=== PATIENT | female | born 1985 | race Caucasian/White ===

== ENCOUNTER 2019-10-10 12:32 | Emergency (ER) | payer OTHER ==
--- NOTE | 2019-10-10 12:36 | PDOC ---
History of Present Illness - General Chief Complaint: Constipation Stated Complaint: CONSTIPATION Time Seen by Provider: 10/10/19 12:35 - History of Present Illness Initial Comments: 10/10/19 12:59 34yo female who is 4 weeks s/p c section delivery with constipation. States she has been having regular bowel movements, but felt rectal pain and pressure today and unable to pass her bowels. Has been fiber and colace since her surgery. States she tried to disimpact herself this am and tried an enema without improvement. Pt denies n/v. No longer on pain meds from her c section. Pt denies f/c. No abd pain. No dysuria. No vaginal complaints. No cp/sob. No f/ c. No other complaints. Pmhx: denies Pshx: c section All: nkda Past History - Past Medical History Allergies/Adverse Reactions: Allergies Allergy/AdvReac Type Severity Reaction Status Date / Time No Known Allergies Allergy Verified 10/10/19 12:33 Home Medications: Ambulatory Orders Docusate Sodium [Colace] 100 mg PO DAILY 10/10/19 Inulin/Chromium Picolinate [Fiber Gummies] 1 each PO DAILY 10/10/19 Vit 93/Iron Fum/Folic [ Formula Tablet] 1 each PO DAILY Review of Systems - Review of Systems Able to Perform ROS?: Yes Is the patient limited Slovenian proficient: No Constitutional: No: Chills, Fever HEENTM: No: Ear Pain, Nose Congestion, Throat Pain Respiratory: No: Cough, Shortness of Breath Cardiac (ROS): No: Chest Pain, Edema, Palpitations ABD/GI: Yes: Constipated, Other (rectal pain). No: Diarrhea, Nausea, Vomiting : No: Burning, Dysuria, Hematuria Musculoskeletal: No: Back Pain Integumentary: No: Rash Neurological: No: Headache, Numbness, Paresthesia All Other Systems: Reviewed and Negative *Physical Exam - Vital Signs 10/10/19 13:03 Selected Entries 10/10/19 12:33 Temperature 97.7 F Pulse Rate 89 Respiratory 20 Rate Blood Pressure 114/77 Blood Pressure 89 Mean O2 Sat by Pulse 100 Oximetry (%) Weight 81.647 kg - Physical Exam General Appearance: Yes: Nourished, Appropriately Dressed, Mild Distress HEENT: positive: EOMI, Normal Voice Neck: positive: Supple Respiratory/Chest: positive: Lungs Clear, Normal Breath Sounds. negative: Respiratory Distress Cardiovascular: positive: Regular Rhythm, Regular Rate, S1, S2. negative: Edema Gastrointestinal/Abdominal: positive: Soft, Other (c section scar is well healing). negative: Guarding, Rebound, Tenderness Rectal Exam: positive: normal rectal tone, hemorrhoids (internal hemorrhoid), other (hard stool in the vault which was removed digitally, small internal hemorrhoids, no fissures, no active bleeding, no thrombosed hemorrhoids) Musculoskeletal: positive: Normal Inspection. negative: CVA Tenderness Extremity: positive: Normal Capillary Refill, Normal Inspection, Normal Range of Motion. negative: Swelling, Calf Tenderness Integumentary: positive: Normal Color, Dry, Warm Neurologic: positive: Fully Oriented, Alert, Normal Mood/Affect Medical Decision Making - Medical Decision Making 10/10/19 13:05 a/p: 34yo female with constipation/fecal impaction after c section 4 weeks ago -fecal impaction on exam -no abd ttp -no signs/symptoms of obstruction -pt was disimpacted, still with stool, will give mag citrate and enema and reassess 10/10/19 13:46 after the enema- pt had a large bm states she feels better and wants to go home pt drank the mag citrate discussed po intake at home, oral hydration, and all reasons to return to the ER answered all questions pt smiling and feeling better stable for dc to home Discharge - Discharge Information Problems reviewed: Yes Clinical Impression/Diagnosis: Fecal impaction in rectum Condition: Stable Disposition: HOME - Admission No - Follow up/Referral Referrals: Venice Alex MD [Staff Physician] - - Patient Discharge Instructions Patient Printed Discharge Instructions: DI for Fecal Impaction Additional Instructions: Please drink plenty of fluids. Please continue to take colace. Please make an appointment to see your PMD. Please return to the ER with any further concerns or complaints. - Post Discharge Activity
[2019-10-10 12:48] VITALS: BP 114/77; PULSE 89; TEMP 97.7; BMI 29.0
[2019-10-10] MEDS ORDERED: MAGNESIUM CITRATE 300 ML BOTTLE PO ONE (12:58)
[2019-10-10] MEDS ORDERED: SODIUM PHOSPHATE/NA BIPHOS 133 ML ENEMA PR ONE (12:59)
[2019-10-10] MEDS ORDERED: LIDOCAINE HCL 2% JELLY 10 ML CARTRIDGE PR ONE (13:05)
[2019-10-10] MEDS ORDERED: LIDOCAINE HCL 2% 100 MG/5 ML DISP.SYRIN ONE (13:06)
[2019-10-10] MEDS ORDERED: MAGNESIUM CITRATE 300 ML BOTTLE ONE (13:06)
== END 2019-10-10 13:57 | disposition home or self-care (01) ==
LOC: FER 12:32
DX: K56.41 Fecal impaction (principal)
CPT/HCPCS: 99283-25

== ENCOUNTER 2020-07-24 16:35 | Emergency (ER) | payer OTHER ==
[2020-07-24 16:43] VITALS: BP 109/55; PULSE 98; TEMP 98.7; BMI 26.6
[2020-07-24] MEDS ORDERED: MINERAL OIL ENEMA 133 ML ENEMA PR ONE (18:32)
== END 2020-07-24 18:35 | disposition home or self-care (01) ==
LOC: FER 16:35
DX: K59.00 Constipation, unspecified (principal)
CPT/HCPCS: 99283-25